=== PATIENT | female | born 1985 | race Two or more races ===

== ENCOUNTER → 2024-12-18 | Emergency (ER) | payer OTHER ==
[~2024-12-18] VITALS: Ht 167.6 cm; Wt 72.6 kg
[2024-12-18 03:40] VITALS: BP 110/80; O2SAT 99
== END | disposition left against medical advice (07) ==
LOC: ER 03:21
DX: Z53.21 Procedure and treatment not carried out due to patient leaving prior to being seen by health care provider (principal)